=== PATIENT | female | born 1980 | race Caucasian/White ===

== ENCOUNTER 2016-06-22 10:48 | Day surgery (SDC) | payer BC, MEDICAID ==
[~2016-06-22 10:48] MED LIST: ACETAMINOPHEN WITH CODEINE 1 EACH TABLET PO PRN; GENTAMICIN SULFATE 80 MG in DEXTROSE 5 % IN WATER 100 ML IV PRN; KETOROLAC TROMETHAMINE 15 MG/ML VIAL IV PRN; ONDANSETRON HCL/PF 2 MG/ML VIAL IV PRN; OXYBUTYNIN CHLORIDE 5 MG TABLET PO PRN; RINGERS SOLUTION,LACTATED 1,000 ML IV PRN; ceFAZolin SODIUM 1 GM in DEXTROSE 5 % IN WATER 100 ML IV PRN; oxyCODONE HCL/ACETAMINOPHEN 1 TAB TABLET PO PRN
--- OUTSIDE RECORDS SUMMARY | 2016-06-22 10:52 | XMS REPORT | Continuity of Care Document ---
:1980 Author Organization [facility] ([facility]) Address [address] [place] [address] Phone [phone] Care Team Providers Name Role Phone Candie Bonilla Primary Care Provider [phone] Source Comments This disclosure is being made pursuant to the Care Everywhere program, applicable federal and state laws, and may not contain all informaitonavailable regarding this patient.[facility] ([facility]) Active Allergies and Adverse Reactions No Known Allergies Current Medications Prescription Sig. Disp. Refills Start Date End Date Status SERTraline 50 mg tablet Take 1 Tab by mouth 15 Tab 0 07/30/2013 Active daily. Indications: MAJOR DEPRESSIVE DISORDER multivitamin Take 1 Tab by mouth Active with minerals 27-0.8 mg daily. Indications: tablet Active Problems Problem Noted Date Other specified and placental problems affecting management of 2013 mother, antepartum Suicidal ideation 07/28/2013 Major depression, recurrent 07/28/2013 Borderline personality disorder 07/28/2013 Social History Tobacco Use Types Packs/Day Years Used Date Never Smoker Alcohol Use Drinks/Week oz/Week Comments Yes prior Last Filed Vital Signs Vital Sign Reading Time Taken Blood Pressure 138/91 07/30/2013 9:00 AM CDT Pulse 123 07/30/2013 9:00 AM CDT Temperature 37.3 C (99.1 F) 07/30/2013 9:00 AM CDT Respiratory Rate 18 07/28/2013 10:57 AM CDT Height 1.6 m (5' 3") 07/28/2013 10:57 AM CDT Weight 76.204 kg (168 lb) 07/28/2013 10:57 AM CDT Body Mass Index 29.77 07/28/2013 10:57 AM CDT Oxygen Saturation 96% 07/28/2013 6:41 AM CDT Plan of Care Health Maintenance Due Date Last Done Comments Hepatitis B Vaccine (1 of 3 - Primary Series) 1980 Tdap Vaccine 1989 Lipid Disorder Screening 1996 MMR Vaccine 1996 Td Vaccine 1996 Cervical Cancer Screening 2008 Influenza Vaccine: Seasonal (#1) 11/21/2015 Results from Last 3 Months Not on file
--- OUTSIDE RECORDS SUMMARY | 2016-06-22 10:53 | XMS REPORT | Summary of Care ---
:1980 Author Organization [facility] Address [address] [place] [address] Care Team Providers Name Role Phone Candie Bonilla Primary Care Physician Encounter Date(s): 06/08/16 - 06/08/16 [facility], [address] [place] [id number] Discharge Disposition: 01 Discharged to Home or Self Care Attending Physician: Diomedes Joseph MD Referring Physician: Diomedes Joseph MD Vital Signs Most recent to oldest [Reference Range]: 1 Peripheral Pulse Rate [60-100 bpm] 72 bpm (06/08/16 11:24 AM) Blood Pressure [90-130/60-90 mmHg] 112/66mmHg (06/08/16 11:24 AM) Mean Arterial Pressure, Cuff 81 mmHg (06/08/16 11:24 AM) Most recent to oldest [Reference Range]: 1 Height/Length Measured 174 cm (06/08/16 11:24 AM) Weight Dosing 80.90 kg1 (06/08/16 11:27 AM) Weight Measured 80.9 kg (06/08/16 11:24 AM) BSA Measured 1.96 m2 (06/08/16 11:24 AM) Body Mass Index Measured 26.72 kg/m2 (06/08/16 11:24 AM) 1Result Comment: This result was because the dosing weight was either not entered or it is>30 days old. This result is based off: Weight Measured June 08, 2016 11:24:00 SITE SURVEYOR by Agatha Gaona RN Problem List Condition Effective Dates Status Health Status Informant Anxiety(Confirmed) Active Depressive disorder(Confirmed) Active Gestational diabetes(Confirmed) Active Hyperglycemia(Confirmed) Active Hypertension(Confirmed) Active Recurrent major depression Active NOS(Confirmed) Spontaneous (Confirmed) Active Allergies, Adverse Reactions, Alerts No Known Medication Allergies Medications amoxicillin 875 mg oral tablet 1 tab(s), Oral, BID, # 20 tab(s), 0 Refill(s), Pharmacy: [id number] Start Date: 12/10/13 Stop Date: 10/11/14 Status: CompletedAugmentin 875 mg-125 mg oral tablet 1 tab(s), Oral, q12hr, # 20 tab(s), 0 Refill(s), Start Date: 10/11/14 11:24:00 CDT, Pharmacy: [id number] Start Date: 10/11/14 Stop Date: 06/01/16 Status: CompletedNuvaRing 0.120 mg-0.015 mg vaginal ring EA, VAG, q4wk, 0 Refill(s) Start Date: 07/27/13 Stop Date: 07/27/13 Status: DiscontinuedNuvaRing 0.120 mg-0.015 mg vaginal ring EA, VAG, q4wk, 0 Refill(s) Start Date: 07/27/13 Stop Date: 12/10/13 Status: DiscontinuedOrtho Tri-Cyclen Lo oral tablet 1 tab(s), Oral, Daily, # 28 tab(s), 4 Refill(s), Pharmacy: [id number] Start Date: 09/09/13 Stop Date: 12/10/13 Status: Discontinuedsertraline 100 mg oral tablet 1 tab(s), Oral, Daily, # 30 tab(s), 4 Refill(s), Pharmacy: [id number] Start Date: 09/09/13 Stop Date: 12/10/13 Status: Discontinuedsertraline 100 mg oral tablet 1 tab(s), Oral, Daily, # 30 tab(s), 0 Refill(s), Start Date: 10/11/14 11:15:00 CDT Start Date: 10/11/14 Stop Date: 06/01/16 Status: Completedsertraline 100 mg oral tablet 1.5 tab(s), Oral, Daily, # 30 tab(s), 0 Refill(s) Start Date: 08/07/13 Stop Date: 12/10/13 Status: Discontinuedsertraline 50 mg oral tablet 1 tab(s), Oral, Daily, # 30 tab(s), 4 Refill(s), Pharmacy: [id number] Start Date: 09/09/13 Stop Date: 12/10/13 Status: Discontinuedsertraline 50 mg oral tablet 1 tab(s), Oral, Daily, # 30 tab(s), 0 Refill(s) Start Date: 07/27/13 Stop Date: 08/07/13 Status: DiscontinuedtraZODone 50 mg oral tablet 1-2 tab(s), Oral, HS, # 60 tab(s), 4 Refill(s), Pharmacy: [facility] [id number] Start Date: 09/09/13 Stop Date: 12/10/13 Status: DiscontinuedXanax 0.25 mg, Oral, PRN as needed for anxiety, 0 Refill(s) Start Date: 07/28/13 Stop Date: 08/07/13 Status: DiscontinuedXanax 0.25 mg oral tablet 1 tab(s), Oral, TID, PRN as needed for anxiety, # 90 tab(s), 0 Refill(s) Start Date: 08/07/13 Stop Date: 12/10/13 Status: Discontinued Results Patient Viewable Results Most recent to oldest [Reference Range]: 1 Urine Appearance Urine Dipstick Clear (06/08/16 11:28 AM) Urine Color Urine Dipstick Yellow (06/08/16 11:28 AM) Specific [place] Urine Dipstick 1.020 (06/08/16 11:28 AM) Bilirubin Urine Dipstick Negative (06/08/16 11:28 AM) pH Urine Dipstick 6 (06/08/16 11:28 AM) Urobilinogen Urine Dipstick 0.2 mg/dl (06/08/16 11:28 AM) Blood Urine Dipstick Negative (06/08/16 11:28 AM) Glucose Urine Dipstick Negative (06/08/16 11:28 AM) Ketones Urine Dipstick Negative (06/08/16 11:28 AM) Protein Urine Dipstick Negative (06/08/16 11:28 AM) Nitrite Urine Dipstick Negative (06/08/16 11:28 AM) Leukocytes Urine Dipstick Negative (06/08/16 11:28 AM) Immunizations No data available for this section Procedures Procedure Date Related Diagnosis Body Site Dilation and curettage1 07/21/12 1SAB 8 weeks Social History No data available for this section Assessment and Plan No data available for this section
[2016-06-22] MEDS: MORPHINE SULFATE 2 MG/ML DISP.SYRIN IV PRN ×2 (14:25→14:55)
[2016-06-22 15:31] VITALS: BP 124/66
== END 2016-06-22 10:49 | disposition home or self-care (01) ==
LOC: AMB 10:48
PROVIDERS: ATTEND Urology
PROC: 0T778DZ Dilation of Left Ureter with Intraluminal Device, Via Natural or Artificial Opening Endoscopic (ICD-10-PCS; 2016-06-22)
PROC: 0TF48ZZ Fragmentation in Left Kidney Pelvis, Via Natural or Artificial Opening Endoscopic (ICD-10-PCS; 2016-06-22)
PROC: BT1FZZZ Fluoroscopy of Left Kidney, Ureter and Bladder (ICD-10-PCS; 2016-06-22)
PROC: 0WHR8YZ Insertion of Other Device into Genitourinary Tract, Via Natural or Artificial Opening Endoscopic (ICD-10-PCS; 2016-06-22)
PROC: 0TF48ZZ Fragmentation in Left Kidney Pelvis, Via Natural or Artificial Opening Endoscopic (ICD-10-PCS; principal; 2016-06-22 12:00)
DX: N20.1 Calculus of ureter (principal); N20.0 Calculus of kidney; I10 Essential (primary) hypertension; R73.9 Hyperglycemia, unspecified; F41.9 Anxiety disorder, unspecified; Z68.26 Body mass index [BMI] 26.0-26.9, adult